=== PATIENT | female | born 1955 | race Caucasian/White ===

== ENCOUNTER 2018-05-12 14:29 | Emergency (ER) | payer MEDICARE ==
--- NOTE | 2018-05-12 15:36 | CT ---
CT LUMBAR SPINE NONCONTRAST: History: Fall. Back injury. FINDINGS: There is very mild compression of the T12 superior endplate. Retropulsion is approximately 0.4 cm wit h minimal effacement of the ventral aspect of the thecal sac. Other vertebral body heights and alignment are maintained. Posterior operative fixation at the L4-5 l evel. L3-4: Posterior disc bulge and circumferential degenerative changes result in moderate stenosis of th e central canal. IMPRESSION: 1. Mild T12 superior endplate compression, acute, with very mild retropulsion. 2. Degenerative and post-operative changes lower lumbar spine. Findings were called to Jyoti Mendoza in the Emergency Department at 1508 hours.
[2018-05-12] MEDS ORDERED: HYDROcodone/Acetaminophen 5/325 mg Tablet ONE (15:42)
== END 2018-05-12 17:25 | disposition home or self-care (01) ==
LOC: ERS 14:29
DX: S22.089A Unspecified fracture of T11-T12 vertebra, initial encounter for closed fracture (principal); F31.9 Bipolar disorder, unspecified; E11.9 Type 2 diabetes mellitus without complications; E78.5 Hyperlipidemia, unspecified; F17.210 Nicotine dependence, cigarettes, uncomplicated; Z79.4 Long term (current) use of insulin; W19.XXXA Unspecified fall, initial encounter
CPT/HCPCS: 72131; L0639

== ENCOUNTER 2018-05-24 11:27 | Outpatient (CLI) | payer MEDICARE | END 2018-05-24 11:28 | disposition home or self-care (01) | LOC: BICMAMMO 11:27 | PROVIDERS: ATTEND Family Medicine | DX: Z12.31 Encounter for screening mammogram for malignant neoplasm of breast (principal); R92.1 Mammographic calcification found on diagnostic imaging of breast | CPT/HCPCS: 77063; 77067 ==

== ENCOUNTER 2018-06-21 14:13 | Outpatient (CLI) | payer MEDICARE ==
--- NOTE | 2018-06-21 16:35 | RAD ---
2 VIEWS LUMBAR SPINE: Date: 06/21/18 HISTORY: Low back pain. Fall. COMPARISON: None. FINDINGS: There are five lumbar-type vertebral bodies. Lumbar spine vertebral body height is maintained. There is no fracture. Uncomplicated lumbar fusion hardware at L4 and L5. No perihardware lucency. There is disc prosthesis at L4-L5. There is mild to moderate chronic compression fracture at T12. Mild loss of vertebral body height. Re tropulsion is noted. When compared to the CT from 05/12/18. There has been progression in terms of th e loss of vertebral body height. IMPRESSION: Worsening loss of vertebral body height at T12. POS: [facility]
--- NOTE | 2018-06-21 16:40 | RAD ---
THORACIC SPINE THREE VIEWS: HISTORY: Back pain. FINDINGS: There are 12 thoracic type vertebrae. The pedicles are intact. Moderate rightward convex curvature of the mid thoracic spine. Compression of the L2 superior endplate with minimal retropulsion. Loss of height by approximately 20%. Osteophytosis throughout the remainder of the facets and vertebral b odies. IMPRESSION: T12 superior endplate compression fracture, approximately 20%, age indeterminate. Appearance suggest s that this could be an acute injury. POS: [facility]
== END 2018-06-21 14:14 | disposition home or self-care (01) ==
LOC: TBSIIMAG 14:13
PROVIDERS: ATTEND Surgery
DX: M54.5 Low back pain (principal); M48.54XA Collapsed vertebra, not elsewhere classified, thoracic region, initial encounter for fracture; M53.84 Other specified dorsopathies, thoracic region
CPT/HCPCS: 72072; 72100

== ENCOUNTER 2018-09-15 13:07 | Outpatient (CLI) | payer MEDICARE ==
--- NOTE | 2018-09-15 13:56 | RAD ---
THORACIC SPINE RADIOGRAPH SERIES THREE VIEWS: Indication: Back pain. FINDINGS: There is thoracic kyphosis. Osseous demineralization. There is multilevel degenerative change without compression fracture or subluxation. Multiple metallic jeaneth overlie the chest. IMPRESSION: 1. No compression fracture or subluxation of the thoracic spine. 2. Thoracic kyphosis. POS: [facility]
--- NOTE | 2018-09-15 14:04 | RAD ---
2-3 VIEW LUMBAR SPINE SERIES: Indication: Low back pain. FINDINGS: Stable hardware alignment of the lower lumbar spine is present. There is re-demonstration of a mild a nterior wedge compression fracture of T12. Exam is grossly stable. IMPRESSION: Stable lumbar spine. POS: [facility]
== END 2018-09-15 13:08 | disposition home or self-care (01) ==
LOC: TBSIIMAG 13:07
PROVIDERS: ATTEND Surgery
DX: M54.5 Low back pain (principal); M40.204 Unspecified kyphosis, thoracic region
CPT/HCPCS: 72070; 72100

== ENCOUNTER 2018-10-06 07:33 | Day surgery (SDC) | payer MEDICARE ==
[2018-09-29 14:17] VITALS: BMI 33.8
--- NOTE | 2018-10-06 03:52 | HP ---
HISTORY OF PRESENT ILLNESS: This is a 63-year-old female, who comes in for colonoscopy for colon cancer screening. The patient with history of recurrent intermittent diarrhea. No history of fever. No abdominal pain. No weight loss. ALLERGIES: SULFA, PENICILLIN, TEGRETOL, MORPHINE CONTENT. SOCIAL HISTORY: The patient is a smoker. She still smokes E-cigarettes. Drinks alcohol occasionally. PAST MEDICAL HISTORY: 1. Diabetes. 2. Hypertension. 3. Hypothyroidism. 4. Hyperlipidemia. 5. Bipolar disorder. 6. Anxiety, depression. PHYSICAL EXAMINATION: VITAL SIGNS: Pulse is 70, blood pressure 130/76. HEENT: Conjunctivae clear. CARDIOVASCULAR SYSTEM: First and second heart sounds heard. LUNGS: Clear to auscultation. ABDOMEN: Soft. No organomegaly. No tenderness. No masses. ADMITTING DIAGNOSIS: A 63-year-old female undergoing colonoscopy for colon cancer screening. Job ID: [id number]
[2018-10-06] MEDS ORDERED: PROPOFOL 200 MG/20 ML VIAL ONE (10:56)
--- NOTE | 2018-10-06 14:46 | OP ---
DATE OF PROCEDURE: 10/06/2018 PROCEDURE PERFORMED: Colonoscopy. PREOPERATIVE DIAGNOSIS: A 63-year-old female undergoing colonoscopy for colon cancer. POSTOPERATIVE DIAGNOSES: Hemorrhoids. Otherwise, normal exam. The patient had redundant, tortuous colon and the exam of this was difficult. DESCRIPTION OF PROCEDURE: The patient was placed on her left lateral position and was given sedation by Anesthesia Department. A rectal exam was done before the scope was advanced into the rectum. No lesions felt on rectal exam. A Pentax video colonoscope was introduced into rectum, advanced all the way to the cecum. Exam was difficult because the colon the patient had was very redundant tortuous colon. Although, abdominal compression was used to advance the scope, the scope kept looping up in the colon. The scope was withdrawn back already in the rectum and advanced back several times. Subsequently, the patient was turned back. With the change in position, the scope could be advanced into the cecum without much difficulty. The mucosa appears normal throughout the colon with normal vascular pattern. In the appendiceal orifice, ileocecal valve, cecum, no pathology seen. Withdrawal of scope from the cecum to ascending colon, hepatic flexure, no pathology seen. The transverse colon, splenic flexure, descending colon, sigmoid colon, no pathology seen. Rectal hemorrhoids. DISCHARGE PLAN: This is a 63-year-old female came for colonoscopy for colon cancer screening. She underwent colonoscopy and had no pathology. DISCHARGE RECOMMENDATIONS: 1. The patient was advised to call me if she develops abdominal pain, hematochezia. 2. In the absence of any other symptoms, she will come back to me in 2 weeks. RECOMMENDATIONS: Repeat colonoscopy in 10 years. Job ID: [id number] [facility]
== END 2018-10-06 12:00 | disposition home or self-care (01) ==
LOC: SDC 07:33
PROVIDERS: ATTEND Internal Medicine Gastroenterology
PROC: 0DJD8ZZ Inspection of Lower Intestinal Tract, Via Natural or Artificial Opening Endoscopic (ICD-10-PCS; principal; 2018-10-06)
DX: Z12.11 Encounter for screening for malignant neoplasm of colon (principal); K63.89 Other specified diseases of intestine; K64.9 Unspecified hemorrhoids; E11.9 Type 2 diabetes mellitus without complications; I10 Essential (primary) hypertension; E03.9 Hypothyroidism, unspecified; E78.5 Hyperlipidemia, unspecified; F31.9 Bipolar disorder, unspecified; F41.9 Anxiety disorder, unspecified; F17.290 Nicotine dependence, other tobacco product, uncomplicated; Z88.0 Allergy status to penicillin; Z88.2 Allergy status to sulfonamides; Z88.5 Allergy status to narcotic agent; Z88.8 Allergy status to other drugs, medicaments and biological substances; Z79.4 Long term (current) use of insulin; Z79.82 Long term (current) use of aspirin; Z79.899 Other long term (current) drug therapy
CPT/HCPCS: 36416

== ENCOUNTER 2018-12-02 14:22 | Outpatient (CLI) | payer MEDICARE ==
--- NOTE | 2018-12-02 14:54 | ULT ---
[facility] lower extremity venous duplex exam: HISTORY: Left leg edema times one week. FINDINGS: Real-time color Doppler evaluation of the left lower extremity was performed from the groin to calf. This includes evaluation of the common femoral, superficial and profunda femoral, saphenous , popliteal and posterior tibial veins. This reveals a deep venous system which is patent. There is normal compressibility and augmentation. IMPRESSION: No evidence of DVT of the left lower extremity.
== END 2018-12-02 14:23 | disposition home or self-care (01) ==
LOC: BICULT 14:22
PROVIDERS: ATTEND Student in an Organized Health Care Education/Training Program
DX: R60.0 Localized edema (principal); R06.00 Dyspnea, unspecified

== ENCOUNTER 2019-03-21 13:38 | Outpatient (CLI) | payer MEDICARE ==
--- NOTE | 2019-03-21 15:45 | BD ---
DEXA BONE MINERAL DENSITY STUDY: HISTORY: Osteoporosis screening. Fall. Postmenopausal female. COMPARISON: DEXA exam from 2016. FINDINGS: BMD (g/cm2) RIGHT HIP: Right femoral neck: 0.667 T-Score: -1.6 -0.1 Total right hip: 0.933 T-Score: -0.1 1.2 Left femoral neck: 0.723 T-Score: -1.0 0.5 Total left hip: 0.983 T-Score: 0.3 1.6 WHO classification osteopenia. Impression: Osteopenia with elevated fracture risk. POS: [facility]
== END 2019-03-21 13:39 | disposition home or self-care (01) ==
LOC: BICMAMMO 13:38
PROVIDERS: ATTEND Student in an Organized Health Care Education/Training Program
DX: Z13.820 Encounter for screening for osteoporosis (principal); S22.080A Wedge compression fracture of T11-T12 vertebra, initial encounter for closed fracture; M85.851 Other specified disorders of bone density and structure, right thigh; M85.852 Other specified disorders of bone density and structure, left thigh; Z91.81 History of falling
CPT/HCPCS: 77080

== ENCOUNTER 2019-05-25 13:34 | Outpatient (CLI) | payer MEDICARE ==
--- NOTE | 2019-05-25 14:00 | MMO ---
Bilateral MAMMO Bilat Screen [facility]. CLINICAL HISTORY: Patient is 63 years old and is seen for screening. The patient has no family history of breast cancer. The patient has no personal history of cancer. VIEWS: The views performed were: bilateral craniocaudal with tomosynthesis and bilateral mediolateral oblique with tomosynthesis. FILMS COMPARED: The present examination has been compared to prior imaging studies performed at [facility] on 04/27/2015, 05/06/2016, 05/21/2017 and 05/24/2018. This study has been interpreted with the assistance of computer-aided detection. MAMMOGRAM FINDINGS: There are scattered fibroglandular densities. There are stable benign appearing calcifications seen in both breasts. There are no suspicious masses, suspicious calcifications, or new areas of architectural distortion. IMPRESSION: THERE IS NO MAMMOGRAPHIC EVIDENCE OF MALIGNANCY. A ROUTINE FOLLOW-UP MAMMOGRAM IN 1 YEAR IS RECOMMENDED. THE RESULTS OF THIS EXAM WERE SENT TO THE PATIENT. ACR BI-RADS Category 2 - Benign finding MAMMOGRAPHY NOTE: 1. A negative mammogram report should not delay a biopsy if a dominant of clinically suspicious mass is present. 2. Approximately 10% to 15% of breast cancers are not detected by mammography. 3. Adenosis and dense breasts may obscure an underlying neoplasm. Reported by: JESSICA COBB MD Electonically Signed: [id number]
== END 2019-05-25 13:35 | disposition home or self-care (01) ==
LOC: BICMAMMO 13:34
PROVIDERS: ATTEND Student in an Organized Health Care Education/Training Program
DX: Z12.31 Encounter for screening mammogram for malignant neoplasm of breast (principal)
CPT/HCPCS: 77063; 77067

== ENCOUNTER 2019-06-06 11:51 | Observation (INO) | payer MEDICARE ==
[2019-06-06 12:40] LABS: #Eosinphils 0.1 thou/uL (0.0-0.7); #Lymphocytes 3.1 thou/uL (1.20-3.40); #Monocytes 1.3 thou/uL (0.11-0.59); #Neutrophils 6.5 thou/uL (1.40-6.50); %Basophils 0.1 % (0.0-1.0); %Eosinophils 0.6 % (0.0-10.0); %Lymphocytes 28.3 % (21.0-51.0); %Monocytes 12.2 % (0.0-10.0); %Neutrophils 58.9 % (42.0-75.0); Hemoglobin 11.1 g/dL (12.0-16.0); Mean Corpuscular HGB CONC 32.8 g/dL (32.0-36.0); Mean Corpuscular Volume 91.4 fL (78.0-98.0); Mean Platelet Volume 8.2 fL (7.4-10.4); Platelet Count 232 thou/uL (130-400); RBC Distribution Width 12.1 % (11.5-14.5)
[2019-06-06] MEDS ORDERED: Sodium Chloride 77 MEQ, Potassium Chloride 20 MEQ in Dextrose 10% in Water 1,000 ML IV SCH (12:45)
[2019-06-06 12:50] LABS: Bilirubin Negative (Negative); Blood, Urine Negative (Negative); Clarity Clear (Clear); Glucose, Urine (Dipstick) Normal (Negative); Leukocyte Negative Leu/uL (Negative); Nitrite Negative (Negative); Protein, Urine (Dipstick) Negative (Neg-Trace); Urobilinogen Normal mg/dL (Less than 2)
[2019-06-06 12:58] LABS: Amphetamine Not Detected (NotDetected); Barbiturates Screen Detected (NotDetected); Benzodiazepine Screen Not Detected (NotDetected); Cocaine Metabolite Screen Not Detected (NotDetected); Medtox Control Line Valid? VALID (VALID); Medtox Reader # READER 1; Methadone Not Detected (NotDetected); Methamphetamine Not Detected (NotDetected); Opiate Screen Detected (NotDetected); Oxycodone Screen Not Detected (NotDetected); Phencyclidine (PCP) Not Detected (NotDetected); THC/Cannabinoid Screen Not Detected (NotDetected); Tricyclic Screen Not Detected (NotDetected)
[2019-06-06 13:05] LABS: ALT (SGPT) 41 U/L (8-55); AST (SGOT) 31 U/L (5-34); Alkaline Phosphatase 38 U/L (40-110); Anion Gap 17 mmol/L (10-20); BUN (Urea Nitrogen) 8 mg/dL (9.8-20.1); Bilirubin, Total 0.2 mg/dL (0.2-1.2); Calc. Creatinine Clearance 0 mL/min (70-130); Calcium 9.4 mg/dL (7.8-10.44); Carbon Dioxide 22 mmol/L (23-31); Chloride 105 mmol/L (98-107); Estimated GFR-MDRD 75; Globulin 3.2 g/dL (2.4-3.5); Glucose 158 mg/dL (80-115); Potassium 3.8 mmol/L (3.5-5.1); Protein, Total 7.2 g/dL (6.0-8.3); Sodium 140 mmol/L (136-145)
[2019-06-06 13:11] LABS: Acetaminophen Less than 6.0 mcg/mL (10.0-30.0); Alcohol Less than 10 mg/dL (Less than 10); CK (CPK) 87 U/L (29-168); Lipase 27 U/L (8-78); Salicylate Less than 8.0 mg/dL (15.0-30.0)
--- NOTE | 2019-06-06 13:37 | RAD ---
PORTABLE CHEST: Date: 06/06/19 HISTORY: Mental status change. FINDINGS: Lungs appear clear of infiltrate. Heart size upper normal. Vasculature within normal range. IMPRESSION: No acute process. POS: [facility]
--- NOTE | 2019-06-06 14:18 | PDOC.FPRHP ---
- History of Present Illness Chief Complaint: Possible Suicide Attemp/Insulin Overdose History of Present Illness: Pt is a 63 yo with PMH significant for Bipolar, Depression, HLD, HTN, Hypothyroid, PTSD, osteoporosis who presents for possible suicide attempt via insulin overdose. Pt is a poor historian and is unable to recall most events from today. She reportedly has history of poor finances. She recalls becoming upset after checking her credit card online. ED reports she called 911 stating she took 90 U of glargine, her home dose is 50 U daily. She does not recall this or the trip to the ED. One month ago she was seen by Dr. Magana in the outpt setting and at this time pt had taken out a new credit card. Dr. Magana notes pt is non-compliant. ED Course: In the ED pt was found to be hyperglycemic. She did not have any signs of hypoglycemia, no change in mentation. She was started on D10 to prophylactically treat for hypoglycemia. Q1h accuchecks were elevated. She was AAO x 2 but had poor recall. UA negative, mildly anemic, and found to be positive for opiates, barbiturates. ED noted history of bipolar. - Allergies/Adverse Reactions Allergies Allergy/AdvReac Type Severity Reaction Status Date / Time carbamazepine [From Tegretol] Allergy Verified 09/29/18 14:18 morphine sulfate Allergy Verified 09/29/18 14:18 [From MS Contin] Penicillins Allergy Verified 09/29/18 14:18 Sulfa (Sulfonamide Allergy Verified 09/29/18 14:18 Antibiotics) - Home Medications Medication Instructions Recorded Confirmed Type Aspirin Chewable [Aspirin Chewable 81 mg PO HS 06/23/14 06/06/19 History Tablet] Divalproex Sodium [Depakote ER] 1,000 mg PO HS 06/23/14 06/06/19 History Levothyroxine Sodium 88 mcg PO HS 06/23/14 06/06/19 History Lisinopril 20 mg PO HS 06/23/14 06/06/19 History Multivit With Calcium,Iron,Min 1 tablet PO HS 06/23/14 06/06/19 History [Women's Daily Multivitamin] Sertraline HCl [Zoloft] 100 mg PO HS 06/23/14 06/06/19 History metFORMIN HCl 1,000 mg PO BID 06/23/14 06/06/19 History Atorvastatin Calcium [Lipitor] 40 mg PO HS 09/29/18 06/06/19 History Insulin Glargine,Hum.Rec.Anlog 30 units SQ HS 09/29/18 06/06/19 History [Lantus] Primidone [Mysoline] 100 mg PO HS 09/29/18 06/06/19 History Venlafaxine HCl [Effexor] 75 mg PO HS 09/29/18 06/06/19 History glipiZIDE [Glucotrol XL] 2.5 mg PO HS 09/29/18 06/06/19 History - History PMHx: Osteoporosis, HTN, HLD, Bipolar, Depression, Hypothyroid, Poor Dentition, Anemia, DM II requiring Insulin Therapy, PTSD PSHx: Multiple skin grafts for leonard, T&A, BLT, Spinal Stenosis Surgery FHx: non-contributory Social: Current smoker - cigars, drinks 1 bottle of wine a month, denies drug use, lives alone with ex- next door - Review of Systems ROS unobtainable: other (Difficult to obtain due to mentation) General: reports: fever/chills, weight/appetite/sleep changes ENT: reports: nasal congestion, rhinorrhea Respiratory: reports: cough, shortness of breath Cardiovascular: reports: chest pain, palpitation Gastrointestinal: reports: nausea, vomiting Genitourinary: reports: incontinence - Vital signs BP: [164/81] HR: [83] RR: [20] Tmax: [99.5] Pox: [97]% on [RA] Wt: [86.18 kg] - Physical Exam Constitutional: NAD, awake, alert and oriented -Constitutional: AAO x 2; difficult with recall, short term memory HEENT: PERRLA, EOMI Neck: FROM, trachea midline Heart: RRR, normal S1/S2, pulses present, no edema Lungs: CTAB, no respiratory distress, no wheezing Abdomen: soft, non-tender, bowel sounds present Neurological: no focal deficit, CN II-XII intact Skin: no rash/lesions, capillary refill <2 seconds Heme/Lymphatic: no purpura, no petechia FMR H&P: Results - Labs Result Diagrams: 06/06/19 12:12 06/06/19 12:12 Lab results: WBC 11.0 thou/uL (4.8-10.8) H 06/06/19 12:12 Hgb 11.1 g/dL (12.0-16.0) L 06/06/19 12:12 Hct 33.8 % (36.0-47.0) L 06/06/19 12:12 MCV 91.4 fL (78.0-98.0) 06/06/19 12:12 Plt Count 232 thou/uL (130-400) 06/06/19 12:12 Neutrophils % 58.9 % (42.0-75.0) 06/06/19 12:12 Sodium 140 mmol/L (136-145) 06/06/19 12:12 Potassium 3.8 mmol/L (3.5-5.1) 06/06/19 12:12 Chloride 105 mmol/L (98-107) 06/06/19 12:12 Carbon Dioxide 22 mmol/L (23-31) L 06/06/19 12:12 BUN 8 mg/dL (9.8-20.1) L 06/06/19 12:12 Creatinine 0.77 mg/dL (0.6-1.1) 06/06/19 12:12 Glucose 158 mg/dL (80-115) H 06/06/19 12:12 Calcium 9.4 mg/dL (7.8-10.44) 06/06/19 12:12 Total Bilirubin 0.2 mg/dL (0.2-1.2) 06/06/19 12:12 AST 31 U/L (5-34) 06/06/19 12:12 ALT 41 U/L (8-55) 06/06/19 12:12 Alkaline Phosphatase 38 U/L (40-110) L 06/06/19 12:12 Creatine Kinase 87 U/L (29-168) 06/06/19 12:12 B-Natriuretic Peptide 56.3 pg/mL (0-100) 06/06/19 12:12 Serum Total Protein 7.2 g/dL (6.0-8.3) 06/06/19 12:12 Albumin 4.0 g/dL (3.4-4.8) 06/06/19 12:12 Lipase 27 U/L (8-78) 06/06/19 12:12 Urine Ketones Negative mg/dL (Negative) 06/06/19 12:31 Urine Blood Negative (Negative) 06/06/19 12:31 Urine Nitrite Negative (Negative) 06/06/19 12:31 Ur Leukocyte Esterase Negative Alok/uL (Negative) 06/06/19 12:31 FMR H&P: A/P - Problem List (1) Diabetes mellitus, type II Current Visit: Yes Status: Acute (2) History of bipolar disorder Current Visit: Yes Status: Acute Code(s): Z86.59 - PERSONAL HISTORY OF OTHER MENTAL AND BEHAVIORAL DISORDERS (3) History of depressed bipolar disorder Current Visit: Yes Status: Acute Code(s): F31.70 - BIPOLAR DISORD, CURRENTLY IN REMIS, MOST RECENT EPISODE UNSP (4) Suicidal overdose Current Visit: Yes Status: Acute Code(s): T50.902A - POISONING BY UNSP DRUG/ MEDS/BIOL SUBST, SELF-HARM, INIT (5) Hyperlipemia Current Visit: No Status: Acute Code(s): E78.5 - HYPERLIPIDEMIA, UNSPECIFIED (6) Hypertension Current Visit: No Status: Acute Code(s): I10 - ESSENTIAL (PRIMARY) HYPERTENSION (7) Hypothyroidism Current Visit: No Status: Acute Code(s): E03.9 - HYPOTHYROIDISM, UNSPECIFIED - Plan Pt is a 63 yo female who presents with non-confirmed history of insulin overdose , suicide attempt who is currently being monitored for hypoglycemia, all BG checks have been > normal limits. Suspect bipolar disorder affecting pt's current disposition. # Insulin Overdose - currently pt has no definitive signs of insulin overdose - mentation AAO x 2 with lapse in recall, short term memory, BG have remained elevated. Will monitor with q2h accuchecks - hypoglycemia protocol initiated - Discuss pt with PCP, Dr. Magana, to determine baseline mentation, short term memory # Suicide Attempt - will further assess once we can establish pt's baseline - pt will need sitter # Bipolar - depakote level pending - continue depakote, will discontinue home effexor, zoloft at this time - Case Management consult - [facility] - pt sees [facility], states she went 2 weeks ago, will need follow up as outpt # Depression - d/c home meds # Hypothyroid - continue home meds # Hypertension - BP elevated on admission, monitor at this time, continue home medications # HLD - continue home meds # Osteoporosis - continue home meds, pt takes bisphosph on mondays # Poor dentition - follow up outpt # Fluid Retention - held Lasix Diet: Carb Consistent, Accuchecks Fluids: None VTE Prophylaxis: Lovenox Full Code: DNI Dispo: pt is currently being monitored for hypoglycemia secondary to insulin overdose, likely will need < 48 hour stay. Will need to further psych eval to dictate dispo home. FMR H&P: Upper Level - Plan Date/Time: 06/06/19 1418 PCP: Luis Magana HPI: This is a 63 yo F who comes in after suicide attempt. She took 90 units of lantus after going to the [employer] and finding out money was taken from the wrong account and this made her angry. She states she is not currently suicidal, she called 911 just after taking the insulin. She denies tremors, weakness, and palpitations at this time. PHYSICAL EXAMINATION: General: NAD, alert and oriented x3 HEENT: PERRLA, EOMI, normal sclera, oropharynx without erythema or exudate Neck: Supple. Full ROM. Heart/Cardiovascular System: RRR, Cap refill < 3 seconds, no rub, no murmur Lungs/Respiratory System: clear to auscultation bilaterally. No increased work of breathing. Room air. Abdomen/Gastro-Intestinal System: no abdominal tenderness, normal bowel sounds, no masses, no organomegaly Extremities: Warm extremities. No cyanosis or edema. Neuro: No gross deficits appreciated. CN 2-12 grossly intact Psychiatry: Awake, Alert and cooperative with exam Skin: No lesions, rashes, or ulcers Musculoskeletal: Full ROM A/P: # Insulin overdose - s/p d10 in ED - accucheck 150, 150, 250 - will d/c d10 and monitor accuchecks q2 hrs with dextrose PRN - took 90 U lantus arond 10am, poor historian, usual dose is 30U # Suicide attempt - Hx of multiple suicide attempts, Bipolar, PTSD - States she would kill someone from bank in [place] if she could - Will consult [facility] when medically cleared - UDS shows opitates, barbiturates - check depakote level # Hypothyroidism - TSH 4.6 - Will restart home meds Fluids: TKO Code status: DNI PPx: SCD Dispo: [facility] consult, glucose Addendum - Attending - Attending Attestation Date/Time: 06/06/19 3714 I personally evaluated the patient and discussed the management with Dr. Vaz I agree with the History, Examination, Assessment and Plan documented above with any addition or exceptions noted below - 63 yo female with h/o bipolar d/o , DM, hypothyroidism, HTN. and HLD presented after intentional overdose of her insulin. Patient states that she had gotten some upsetting news regarding some financial issues and then took 90 units of her glargine (usual dose is 30 units) . She then called the police and EMS responded and she was brought to ER. No hypoglycemia in ambulance or ER and patient started on D10 in ER and given meal. Lowest BG in ER 145; highest 248. PMH/PSH/Meds/SH reviewed and agree with resident's documentation. Afebrile VSS Exam repeated by me and agree with resident's documentation. Labs: WBC=11.0, H/H=11.1/33.8, Ztg=143, Ac=089, K=3.8 , An=395, CO2=22, BUN/Cr=8/0.77, Htrs=644, valproic acid=14.4. A/P: 1) Insulin OD- no hypoglycemia; continue to monitor accuchecks q2 hours; if stable for next 3 readings then can change to q4 hours. Plan for [facility] once medically stable. 2) Hypothyroidism- continue home meds. 3) Bipolar- continue home meds.
[2019-06-06] MEDS ORDERED: Dextrose 50% Abboject 50 ML SYRINGE SLOW IVP PRN (15:10)
[2019-06-06] MEDS ORDERED: Dextrose 5% in Water 1,000 ML IV PRN (15:10)
[2019-06-06 16:55] VITALS: BMI 34.9
[2019-06-06] MEDS ORDERED: Ondansetron ODT 4 MG TAB PO PRN (19:08)
[2019-06-06] MEDS ORDERED: Nicotine 14 MG PATCH TD SCH (20:00)
[2019-06-06] MEDS ORDERED: Primidone 50 MG TAB PO SCH (21:00)
[2019-06-06] MEDS ORDERED: Atorvastatin Calcium 40 MG TAB PO SCH (21:00)
[2019-06-06] MEDS ORDERED: Aspirin Chewable 81 MG TAB PO SCH (21:00)
[2019-06-06] MEDS: Insulin Regular 300 UNITS/3 ML VIAL SC PRN ×2 (21:06→23:27)
[2019-06-07 04:54] LABS: ALT (SGPT) 45 U/L (8-55); AST (SGOT) 45 U/L (5-34); Albumin 3.5 g/dL (3.4-4.8); Alkaline Phosphatase 39 U/L (40-110); Anion Gap 12 mmol/L (10-20); BUN (Urea Nitrogen) 12 mg/dL (9.8-20.1); Bilirubin, Total 0.2 mg/dL (0.2-1.2); Calc. Creatinine Clearance 105 mL/min (70-130); Calcium 8.9 mg/dL (7.8-10.44); Carbon Dioxide 24 mmol/L (23-31); Chloride 107 mmol/L (98-107); Estimated GFR-MDRD 80; Glucose 118 mg/dL (80-115); Potassium 4.4 mmol/L (3.5-5.1); Protein, Total 6.5 g/dL (6.0-8.3); Sodium 139 mmol/L (136-145)
[2019-06-07] MEDS ORDERED: Levothyroxine Sodium 100 MCG TAB PO SCH (06:00)
--- NOTE | 2019-06-07 07:47 | PDOC.FM ---
- Subjective Subjective: This AM patient states she feels great. Still frustrated about bank situation but denies SI/HI this AM. Denies pain, tremors, N/V/D. No other complaints this AM. Much improved demeanor from yesterday. - Objective Vital Signs & Weight: Vital Signs (12 hours) Temp Pulse Resp BP Pulse Ox 06/07/19 05:11 98.5 F 88 20 106/59 L 99 06/07/19 00:00 99.7 F H 82 20 102/53 L 06/06/19 21:30 99.5 F 06/06/19 20:00 100 F H 85 20 125/56 L 95 Weight Weight 86.636 kg I&O: 06/06/19 06/07/19 06/08/19 06:59 06:59 06:59 Intake Total 410 Balance 410 Result Diagrams: 06/06/19 12:12 06/07/19 04:05 Phys Exam - Physical Examination Constitutional: NAD HEENT: PERRLA, moist MMs Neck: no nodes, full ROM Respiratory: no wheezing, no rales, clear to auscultation bilateral Cardiovascular: RRR, no significant murmur Gastrointestinal: soft, non-tender, no distention, positive bowel sounds Musculoskeletal: no edema, pulses present Neurological: moves all 4 limbs Psychiatric: normal affect, A&O x 3 Dx/Plan (1) Diabetes mellitus, type II Status: Acute (2) History of bipolar disorder Code(s): Z86.59 - PERSONAL HISTORY OF OTHER MENTAL AND BEHAVIORAL DISORDERS Status: Acute (3) History of depressed bipolar disorder Code(s): F31.70 - BIPOLAR DISORD, CURRENTLY IN REMIS, MOST RECENT EPISODE UNSP Status: Acute (4) Suicidal overdose Code(s): T50.902A - POISONING BY UNSP DRUG/MEDS/BIOL SUBST, SELF-HARM, INIT Status: Acute (5) Hyperlipemia Code(s): E78.5 - HYPERLIPIDEMIA, UNSPECIFIED Status: Acute (6) Hypertension Code(s): I10 - ESSENTIAL (PRIMARY) HYPERTENSION Status: Acute (7) Hypothyroidism Code(s): E03.9 - HYPOTHYROIDISM, UNSPECIFIED Status: Acute - Plan Plan: # Insulin overdose- DMII - s/p d10 in ED - glucose stable overnight and this AM, tolerated PO without difficulty - Sliding scale overnight # Suicide attempt- PTSD, Biplar, depression - Hx of multiple suicide attempts, Bipolar, PTSD - Medically cleared, awaiting [facility] eval - denies SI/HI at this time - depakote level low, possible non-compliance # Hypothyroidism - TSH 4.6 - home meds, possible non-compliance Fluids: TKO Code status: DNI PPx: SCD Dispo: likely d/c today pending [facility] eval
[2019-06-07] MEDS ORDERED: Calcium Carbonate + Vit D 1 TAB PO SCH (08:00)
[2019-06-07] MEDS ORDERED: Lisinopril 10 MG TAB PO SCH (09:00)
[2019-06-07] MEDS ORDERED: Enoxaparin Sodium 40 MG/0.4 ML SYRINGE SC SCH (09:00)
[2019-06-07] MEDS: Insulin Regular 300 UNITS/3 ML VIAL SC PRN ×2 (09:05→12:20)
[2019-06-07 15:47] VITALS: BP 133/69; TEMP 98.5
[2019-06-07] MEDS ORDERED: FLU VACC TS2019-20(65YR UP)/PF 180 MCG/0.5 ML SYRINGE IM ONE (17:15)
--- NOTE | 2019-06-07 17:22 | EKG ---
Test Reason : Blood Pressure : / mmHG Vent. Rate : 079 BPM Atrial Rate : 079 BPM P-R Int : 158 ms QRS Dur : 100 ms QT Int : 382 ms P-R-T Axes : 045 -10 044 degrees QTc Int : 438 ms Normal sinus rhythm Moderate voltage criteria for LVH, may be normal variant ST abnormality, possible digitalis effect Abnormal ECG Confirmed by BAKARI OLVERA, JOSUE ([id number]), editor in chief newspaper AVINASH MCKEON ([id number]) on 06/07/2019 5:22:30 PM Referred By: Confirmed By:JOSUE VILLEGAS MD
[2019-06-07] MEDS ORDERED: Multivit, Therapeutic 1 TAB PO SCH (21:00)
--- NOTE | 2019-06-08 05:06 | DIS ---
DATE OF ADMISSION: 06/06/2019 DATE OF DISCHARGE: 06/07/2019 CONSULTS: [facility]. PROCEDURES: None. PRIMARY DIAGNOSIS: Insulin overdose. SECONDARY DIAGNOSES: 1. Bipolar. 2. Post-traumatic stress disorder. 3. Depression. 4. Suicide attempt. 5. Hypothyroidism. 6. Hyperlipidemia. 7. Hypertension. DISCHARGE MEDICATIONS: There was no changes from the patient's home medications. There is a discrepancy between what the patient says she is taking as far as insulin and what is recorded in her chart from [facility]. [facility] note she should be on 50 units of Lantus daily. The patient is adamant that she takes only 30 units daily. 1. Multivitamin. 2. Aspirin 81 mg daily. 3. Levothyroxine 88 mcg. 4. Lisinopril. 5. Metformin 1 g b.i.d. 6. Sertraline 100 mg daily. 7. Depakote 1 g at bedtime. 8. Glipizide 2.5 mg at bedtime. 9. Primidone 100 mg at bedtime. 10. Venlafaxine 75 mg oral at bedtime. 11. Atorvastatin 40 at bedtime. 12. Insulin 30 units at bedtime. DISCONTINUED MEDICATIONS: None. HISTORY OF PRESENT ILLNESS/HOSPITAL COURSE: This is a 63-year-old female, who came in after taking 90 units of Lantus at home in an attempt to kill herself. She states that she went to the bank and found that some money was missing and this made her extremely angry. She stated that she would have harmed or killed some of the bank workers if she was near to them. She states that the bank was in [place] and so she could not reach them. So she decided to take 90 units of insulin in order to try to kill herself. The patient called 911 immediately after taking the insulin. Upon arrival to the ER, her glucose was 150. She was started on D10 and her glucoses trended up all way to 480. The patient was managed with sliding scale throughout the course of the night. The patient was asymptomatic throughout the course of the night. Denied weakness, palpitations, tremors, and her lab values were all within normal limits in the morning. [facility] came and evaluated the patient in the morning and stated that she was fit for admission to [facility] secondary to her persistent homicidal ideation and unstable nature. In the morning, the patient had denied suicidal ideation, but she still stated that she felt she could be a harm to someone if something happened that stressed her out. Therefore, the patient was transferred to [facility] for continued psychiatric care. DISPOSITION: Stable. DISCHARGE INSTRUCTIONS: 1. Location: [facility]. 2. Diet: Diabetic. 3. Activity: As tolerated. 4. Followup: With Dr. Shahrzad Magana 3 to 4 days after discharge from [facility]. Job ID: [id number]
== END 2019-06-07 16:02 | disposition short-term general hospital (02) ==
LOC: ERS 11:51 → ERHOLD 14:05 → T4-B 16:36
PROVIDERS: ADMIT Family Medicine; ATTEND Family Medicine
DX: T38.3X2A Poisoning by insulin and oral hypoglycemic [antidiabetic] drugs, intentional self-harm, initial encounter (principal); E11.65 Type 2 diabetes mellitus with hyperglycemia; I10 Essential (primary) hypertension; E03.9 Hypothyroidism, unspecified; E78.5 Hyperlipidemia, unspecified; F42.9 Obsessive-compulsive disorder, unspecified; F32.9 Major depressive disorder, single episode, unspecified; F43.10 Post-traumatic stress disorder, unspecified; F17.290 Nicotine dependence, other tobacco product, uncomplicated; M81.0 Age-related osteoporosis without current pathological fracture; Z79.82 Long term (current) use of aspirin; Z79.4 Long term (current) use of insulin; Z79.899 Other long term (current) drug therapy; Z88.5 Allergy status to narcotic agent; Z88.8 Allergy status to other drugs, medicaments and biological substances; Z88.0 Allergy status to penicillin; Z88.2 Allergy status to sulfonamides
CPT/HCPCS: 71045; 80053; 80164; 80306; 80307; 81003; 82550; 82962 ×2; 83690; 83880; 84484; 90662; 93005; 96360; 96361; 96372; 99285; G0008; G0378 ×3; 36415; 36416; 84443; 85025; 90471; J1650

== ENCOUNTER 2020-05-28 13:43 | Outpatient (CLI) | payer MEDICARE ==
--- NOTE | 2020-05-28 14:30 | MMO ---
Bilateral MAMMO Bilat Screen [facility]. CLINICAL HISTORY: Patient is 64 years old and is seen for screening. The patient has no family history of breast cancer. The patient has no personal history of cancer. VIEWS: The views performed were: bilateral craniocaudal with tomosynthesis and bilateral mediolateral oblique with tomosynthesis. FILMS COMPARED: The present examination has been compared to prior imaging studies performed at [facility] on 05/06/2016, 05/21/2017, 05/24/2018 and 05/25/2019. This study has been interpreted with the assistance of computer-aided detection. MAMMOGRAM FINDINGS: There are scattered fibroglandular densities. There are benign appearing calcifications seen in both breasts. Deformity and scarring left breast is stable. There are no suspicious masses, suspicious calcifications, or new areas of architectural distortion. IMPRESSION: THERE IS NO MAMMOGRAPHIC EVIDENCE OF MALIGNANCY. A ROUTINE FOLLOW-UP MAMMOGRAM IN 1 YEAR IS RECOMMENDED. THE RESULTS OF THIS EXAM WERE SENT TO THE PATIENT. ACR BI-RADS Category 2 - Benign finding MAMMOGRAPHY NOTE: 1. A negative mammogram report should not delay a biopsy if a dominant of clinically suspicious mass is present. 2. Approximately 10% to 15% of breast cancers are not detected by mammography. 3. Adenosis and dense breasts may obscure an underlying neoplasm. Reported by: JUAN JOSÉ MUÑOZ MD Electonically Signed: [id number]
== END 2020-05-28 13:44 | disposition home or self-care (01) ==
LOC: BICMAMMO 13:43
PROVIDERS: ATTEND Internal Medicine
DX: Z12.31 Encounter for screening mammogram for malignant neoplasm of breast (principal)
CPT/HCPCS: 77063; 77067

== ENCOUNTER 2020-11-27 13:12 | Outpatient (CLI) | payer MEDICARE | END 2020-11-27 13:13 | disposition home or self-care (01) | LOC: DTY/OP 13:12 | PROVIDERS: ATTEND Student in an Organized Health Care Education/Training Program | DX: E11.40 Type 2 diabetes mellitus with diabetic neuropathy, unspecified (principal) | CPT/HCPCS: 97802 ==

== ENCOUNTER 2021-03-05 10:17 | Observation (INO) | payer MEDICARE ==
[2021-03-05 11:36] LABS: Bacteria/HPF None Seen HPF (None Seen); Bilirubin Negative (Negative); Blood, Urine Negative (Negative); Clarity Clear (Clear); Glucose, Urine (Dipstick) Greater than 1000 mg/dL (Negative); Ketone, Urine 10 mg/dL (Negative); Leukocyte 250 Leu/uL (Negative); Nitrite Negative (Negative); Protein, Urine (Dipstick) Negative (Neg-Trace); RBC/HPF 0-3 HPF (0-3); Specific Gravity, Urine 1.032 (1.002-1.036); Squamous Epithelial 0-3 HPF (0-3); Urobilinogen Normal mg/dL (Less than 2); pH, Urine 5.5 (5.0-9.0)
[2021-03-05 11:48] LABS: Amphetamine Not Detected (NotDetected); Barbiturates Screen Detected (NotDetected); Benzodiazepine Screen Not Detected (NotDetected); Cocaine Metabolite Screen Not Detected (NotDetected); Medtox Control Line Valid? VALID (VALID); Medtox Reader # READER 4; Methadone Not Detected (NotDetected); Methamphetamine Not Detected (NotDetected); Opiate Screen Not Detected (NotDetected); Oxycodone Screen Not Detected (NotDetected); Phencyclidine (PCP) Not Detected (NotDetected); THC/Cannabinoid Screen Not Detected (NotDetected); Tricyclic Screen Not Detected (NotDetected)
[2021-03-05 11:58] LABS: Actual Bicarbonate (HCO3v) 21 mEq/L (22-28); Analyzer IN Cardio ER; Base Excess -2.2 mEq/L (-2.0 to +3.0); Calcium, Ionized (venous) 1.07 mmol/L (1.16-1.32); Chloride (VBG) 101 mmol/L (98-106); Potassium (VBG) 4.01 mmol/L (3.70-5.30); Sodium 136.4 mmol/L (133-146); pH (venous) 7.43 (7.32-7.43)
[2021-03-05 12:00] LABS: #Eosinphils 0.1 thou/uL (0.0-0.7); #Lymphocytes 3.9 thou/uL (1.20-3.40); #Monocytes 0.8 thou/uL (0.11-0.59); #Neutrophils 5.1 thou/uL (1.40-6.50); %Basophils 0.2 % (0.0-1.0); %Eosinophils 0.9 % (0.0-10.0); %Lymphocytes 39.1 % (21.0-51.0); %Monocytes 7.9 % (0.0-10.0); %Neutrophils 51.8 % (42.0-75.0); Hemoglobin 12.1 g/dL (12.0-16.0); Mean Corpuscular HGB CONC 31.9 g/dL (32.0-36.0); Mean Corpuscular Hemoglobin 29.7 pg (27.0-31.0); Mean Corpuscular Volume 93.3 fL (78.0-98.0); Mean Platelet Volume 7.8 fL (7.4-10.4); Platelet Count 325 thou/uL (130-400); RBC Distribution Width 12.2 % (11.5-14.5); Red Blood Cell (RBC) Count 4.08 mill/uL (4.20-5.40); White Blood Cell (WBC) Count 9.9 thou/uL (4.8-10.8)
[2021-03-05 12:12] LABS: Acetaminophen Less than 6.0 mcg/mL (10.0-30.0); Alcohol Less than 10 mg/dL (Less than 10); Salicylate Less than 8.0 mg/dL (15.0-30.0)
[2021-03-05 12:18] LABS: ALT (SGPT) 65 U/L (8-55); AST (SGOT) 42 U/L (5-34); Albumin 3.9 g/dL (3.4-4.8); Alkaline Phosphatase 62 U/L (40-110); Anion Gap 21 mmol/L (10-20); BUN (Urea Nitrogen) 22 mg/dL (9.8-20.1); Bilirubin, Total Less than 0.2 mg/dL (0.2-1.2); Calc. Creatinine Clearance 0 mL/min (70-130); Calcium 9.6 mg/dL (7.8-10.44); Carbon Dioxide 19 mmol/L (23-31); Chloride 100 mmol/L (98-107); Globulin 3.3 g/dL (2.4-3.5); Glucose 438 mg/dL (80-115); Potassium 4.1 mmol/L (3.5-5.1); Protein, Total 7.2 g/dL (5.8-8.1); Sodium 136 mmol/L (136-145)
[2021-03-05] MEDS ORDERED: Cefepime 2 GM VIAL ONE (12:57)
[2021-03-05] MEDS ORDERED: Acetaminophen 325 MG TAB PO PRN (14:06)
[2021-03-05] MEDS ORDERED: Ondansetron ODT 4 MG TAB PO PRN (14:06)
[2021-03-05] MEDS ORDERED: Ondansetron PF 4 MG/2 ML Vial IVP PRN (14:06)
[2021-03-05] MEDS ORDERED: hydrOXYzine 25 MG TAB PO PRN (14:27)
[2021-03-05] MEDS ORDERED: Dextrose 5% in Water 1,000 ML IV PRN (14:30)
[2021-03-05] MEDS ORDERED: Dextrose 50% Abboject 50 ML SYRINGE SLOW IVP PRN (14:30)
[2021-03-05] MEDS ORDERED: HumaLOG 300 UNITS/3 ML VIAL SC PRN (14:30)
[2021-03-05 14:53] LABS: Hemoglobin A1c 8.2 % (4.0-6.0)
[2021-03-05 14:55] LABS: Lactic Acid 4.2 mmol/L (0.5-2.2)
[2021-03-05] MEDS ORDERED: Nicotine 21 MG PATCH TD SCH (15:00)
[2021-03-05 15:19] VITALS: BMI 33.5
[2021-03-05] MEDS: Lactated Ringer's 1,000 ML IV SCH (15:45)
[2021-03-05 17:29] LABS: Lactic Acid 4.6 mmol/L (0.5-2.2)
[2021-03-05] MEDS: HumaLOG 300 UNITS/3 ML VIAL SC PRN (17:57)
[2021-03-05 20:28] LABS: Lactic Acid 2.7 mmol/L (0.5-2.2)
[2021-03-05] MEDS: Primidone 50 MG TAB PO SCH (20:55)
[2021-03-05] MEDS ORDERED: Lisinopril 20 MG TAB PO SCH (21:00)
[2021-03-05] MEDS ORDERED: Atorvastatin Calcium 40 MG TAB PO SCH (21:00)
[2021-03-05] MEDS ORDERED: Levothyroxine Sodium 88 MCG TAB PO SCH (21:00)
[2021-03-05] MEDS ORDERED: Multivitamin W/ Minerals 1 TAB PO SCH (21:00)
[2021-03-05] MEDS ORDERED: Lantus 1000 UNITS/10 ML VIAL SC SCH (21:00)
[2021-03-05] MEDS ORDERED: Aspirin Chewable 81 MG TAB PO SCH (21:00)
[2021-03-06] MEDS: Lactated Ringer's 1,000 ML IV SCH (03:40)
[2021-03-06 05:35] LABS: Lactic Acid 1.5 mmol/L (0.5-2.2)
[2021-03-06 05:48] LABS: ALT (SGPT) 70 U/L (8-55); AST (SGOT) 57 U/L (5-34); Albumin 3.8 g/dL (3.4-4.8); Alkaline Phosphatase 70 U/L (40-110); Anion Gap 16 mmol/L (10-20); BUN (Urea Nitrogen) 13 mg/dL (9.8-20.1); Bilirubin, Total 0.2 mg/dL (0.2-1.2); Calc. Creatinine Clearance 101 mL/min (70-130); Calcium 9.1 mg/dL (7.8-10.44); Carbon Dioxide 20 mmol/L (23-31); Chloride 108 mmol/L (98-107); Globulin 3.2 g/dL (2.4-3.5); Glucose 177 mg/dL (80-115); Potassium 3.7 mmol/L (3.5-5.1); Sodium 140 mmol/L (136-145)
[2021-03-06] MEDS: Primidone 50 MG TAB PO SCH (07:24)
[2021-03-06] MEDS ORDERED: Clobetasol 0.05% Cream 15 gm Tube TOP PRN (08:00)
[2021-03-06 11:46] VITALS: BP 129/60; TEMP 98.6
[2021-03-06] MEDS: HumaLOG 300 UNITS/3 ML VIAL SC PRN (11:48)
== END 2021-03-06 14:15 | disposition home or self-care (01) ==
LOC: ERS 10:17 → 2NO 13:02
PROVIDERS: ADMIT Student in an Organized Health Care Education/Training Program; ATTEND Student in an Organized Health Care Education/Training Program
DX: R25.1 Tremor, unspecified (principal); E11.620 Type 2 diabetes mellitus with diabetic dermatitis; E03.9 Hypothyroidism, unspecified; E87.2 Acidosis; R13.10 Dysphagia, unspecified; F17.290 Nicotine dependence, other tobacco product, uncomplicated; Z79.4 Long term (current) use of insulin; Z79.82 Long term (current) use of aspirin; Z79.899 Other long term (current) drug therapy; Z88.0 Allergy status to penicillin; Z88.2 Allergy status to sulfonamides; Z88.5 Allergy status to narcotic agent; Z88.8 Allergy status to other drugs, medicaments and biological substances
CPT/HCPCS: 36415; 36416; 80053; 80164; 80306; 80307; 81003; 81015; 82010; 82805; 83036; 83605; 84443; 85025; 87040; 87086; 93005; 96365; G0378; J0692; J1815

== ENCOUNTER 2021-05-29 14:39 | Outpatient (CLI) | payer MEDICARE | END 2021-05-29 14:40 | disposition home or self-care (01) | LOC: BICMAMMO 14:39 | PROVIDERS: ATTEND Student in an Organized Health Care Education/Training Program | DX: Z12.31 Encounter for screening mammogram for malignant neoplasm of breast (principal) | CPT/HCPCS: 77063; 77067 ==

== ENCOUNTER 2021-10-06 13:44 | Emergency (ER) | payer MEDICARE ==
[2021-10-06 14:58] LABS: #Eosinphils 0.1 thou/uL (0.0-0.7); #Lymphocytes 1.7 thou/uL (1.20-3.40); #Monocytes 0.6 thou/uL (0.11-0.59); #Neutrophils 4.7 thou/uL (1.40-6.50); %Basophils 0.3 % (0.0-1.0); %Eosinophils 1.1 % (0.0-10.0); %Lymphocytes 24.4 % (21.0-51.0); %Monocytes 7.9 % (0.0-10.0); %Neutrophils 66.4 % (42.0-75.0); Hemoglobin 11.6 g/dL (12.0-16.0); Mean Corpuscular HGB CONC 32.6 g/dL (32.0-36.0); Mean Corpuscular Hemoglobin 29.1 pg (27.0-31.0); Mean Corpuscular Volume 89.1 fL (78.0-98.0); Platelet Count 261 thou/uL (130-400); Red Blood Cell (RBC) Count 3.98 mill/uL (4.20-5.40); White Blood Cell (WBC) Count 7.1 thou/uL (4.8-10.8)
[2021-10-06 14:59] LABS: Bilirubin Negative (Negative); Blood, Urine Negative (Negative); Clarity Clear (Clear); Glucose, Urine (Dipstick) Greater than 1000 mg/dL (Negative); Ketone, Urine Negative (Negative); Leukocyte Negative Leu/uL (Negative); Nitrite Negative (Negative); Protein, Urine (Dipstick) Negative (Neg-Trace); Specific Gravity, Urine 1.036 (1.002-1.036); Urobilinogen Normal mg/dL (Less than 2); pH, Urine 5.5 (5.0-9.0)
[2021-10-06 15:19] LABS: ALT (SGPT) 26 U/L (8-55); AST (SGOT) 33 U/L (5-34); Albumin 3.8 g/dL (3.4-4.8); Alkaline Phosphatase 61 U/L (40-110); Anion Gap 13 mmol/L (10-20); BUN (Urea Nitrogen) 9 mg/dL (9.8-20.1); Bilirubin, Total 0.4 mg/dL (0.2-1.2); Calc. Creatinine Clearance 0 mL/min (70-130); Calcium 9.8 mg/dL (7.8-10.44); Carbon Dioxide 23 mmol/L (23-31); Chloride 102 mmol/L (98-107); Globulin 3.1 g/dL (2.4-3.5); Glucose 487 mg/dL (80-115); Potassium 3.5 mmol/L (3.5-5.1); Protein, Total 6.9 g/dL (5.8-8.1); Sodium 134 mmol/L (136-145)
== END 2021-10-06 18:45 | disposition home or self-care (01) ==
LOC: ERS 13:44
DX: E11.65 Type 2 diabetes mellitus with hyperglycemia (principal); E03.9 Hypothyroidism, unspecified; E78.5 Hyperlipidemia, unspecified; F17.210 Nicotine dependence, cigarettes, uncomplicated; Z79.4 Long term (current) use of insulin
CPT/HCPCS: 36415; 36416; 71045; 80053; 81003; 84484; 85025; 93005

== ENCOUNTER 2022-01-24 14:31 | Outpatient (CLI) | payer MEDICARE ==
[2022-01-25 02:04] LABS: SARS-CoV-2 PCR by NAA Not Detected (NotDetected)
== END 2022-01-24 14:32 | disposition home or self-care (01) ==
LOC: LABBT 14:31
PROVIDERS: ATTEND Student in an Organized Health Care Education/Training Program
DX: Z20.822 Contact with and (suspected) exposure to COVID-19 (principal)
CPT/HCPCS: U0003; U0005

== ENCOUNTER 2022-01-28 12:41 | Outpatient (CLI) | payer MEDICARE | END 2022-01-28 12:42 | disposition home or self-care (01) | LOC: RAD 12:41 | PROVIDERS: ATTEND Student in an Organized Health Care Education/Training Program | DX: R13.10 Dysphagia, unspecified (principal); K44.9 Diaphragmatic hernia without obstruction or gangrene | CPT/HCPCS: 74220 ==

== ENCOUNTER 2022-05-30 13:53 | Outpatient (CLI) | payer MEDICARE | END 2022-05-30 13:54 | disposition home or self-care (01) | LOC: BICMAMMO 13:53 | PROVIDERS: ATTEND Student in an Organized Health Care Education/Training Program | DX: Z12.31 Encounter for screening mammogram for malignant neoplasm of breast (principal); M81.8 Other osteoporosis without current pathological fracture; M85.851 Other specified disorders of bone density and structure, right thigh | CPT/HCPCS: 77063; 77067; 77080 ==

== ENCOUNTER 2022-11-14 02:27 | Emergency (ER) | payer MEDICARE ==
[2022-11-14] MEDS ORDERED: Mag-Al 1200 mg/1200 mg/30 ML UDCUP ONE (03:13)
[2022-11-14] MEDS ORDERED: Ondansetron ODT 4 MG TAB ONE (03:13)
[2022-11-14 04:24] LABS: #Eosinphils 0.1 thou/uL (0.0-0.7); #Lymphocytes 2.3 thou/uL (1.20-3.40); #Neutrophils 10.6 thou/uL (1.40-6.50); %Eosinophils 0.7 % (0.0-10.0); %Lymphocytes 16.2 % (21.0-51.0); %Monocytes 6.8 % (0.0-10.0); %Neutrophils 76.2 % (42.0-75.0); Mean Corpuscular HGB CONC 32.6 g/dL (32.0-36.0); Mean Corpuscular Hemoglobin 28.8 pg (27.0-31.0); Mean Corpuscular Volume 88.1 fl (78.0-98.0); Mean Platelet Volume 8.7 fL (7.4-10.4); Platelet Count 295 10x3/uL (130-400); RBC Distribution Width 13.5 % (11.5-14.5); Red Blood Cell (RBC) Count 4.18 mill/uL (4.20-5.40); White Blood Cell (WBC) Count 13.9 10x3/uL (4.8-10.8)
[2022-11-14 04:38] LABS: ALT (SGPT) 46 U/L (8-55); AST (SGOT) 72 U/L (5-34); Albumin 4.5 g/dL (3.4-4.8); Alkaline Phosphatase 127 U/L (40-110); Anion Gap 22 mmol/L (10-20); BUN (Urea Nitrogen) 11 mg/dL (9.8-20.1); Bilirubin, Total 0.3 mg/dL (0.2-1.2); Calc. Creatinine Clearance 0 mL/min (70-130); Calcium 9.4 mg/dL (7.8-10.44); Carbon Dioxide 18 mmol/L (23-31); Chloride 102 mmol/L (98-107); Estimated GFR 60; Globulin 3.5 g/dL (2.4-3.5); Glucose 332 mg/dL (80-115); Sodium 138 mmol/L (136-145)
[2022-11-14 07:59] LABS: Anion Gap 17 mmol/L (10-20); BUN (Urea Nitrogen) 12 mg/dL (9.8-20.1); Calc. Creatinine Clearance 0 mL/min (70-130); Calcium 9.1 mg/dL (7.8-10.44); Carbon Dioxide 27 mmol/L (23-31); Chloride 98 mmol/L (98-107); Estimated GFR 65; Glucose 295 mg/dL (80-115); Sodium 138 mmol/L (136-145)
== END 2022-11-14 08:31 | disposition home or self-care (01) ==
LOC: ERS 02:27
DX: J02.9 Acute pharyngitis, unspecified (principal); E11.9 Type 2 diabetes mellitus without complications; E03.9 Hypothyroidism, unspecified; E78.00 Pure hypercholesterolemia, unspecified; I10 Essential (primary) hypertension; Z87.891 Personal history of nicotine dependence; Z79.84 Long term (current) use of oral hypoglycemic drugs
CPT/HCPCS: 36415; 36416; 80053; 82010; 85025; 96360; Q0162

== ENCOUNTER 2023-03-23 18:30 | Outpatient (CLI) | payer MEDICARE | END 2023-03-23 18:31 | disposition home or self-care (01) | LOC: SLEEPLAB 18:30 | PROVIDERS: ATTEND Internal Medicine | DX: G47.33 Obstructive sleep apnea (adult) (pediatric) (principal) | CPT/HCPCS: 95800 ==

== ENCOUNTER 2023-04-06 11:15 | Emergency (ER) | payer MEDICARE ==
[~2023-04-06 11:15] MED LIST: Iopamidol-370 76% 500 ML MDV (1 ML CHARGE) ONE
[2023-04-06] MEDS ORDERED: Acetaminophen 325 MG TAB ONE (12:15)
[2023-04-06 12:35] LABS: #Eosinphils 0.1 thou/uL (0.0-0.7); #Monocytes 1.3 thou/uL (0.11-0.59); #Neutrophils 8.6 thou/uL (1.40-6.50); %Basophils 0.4 % (0.0-1.0); %Eosinophils 0.8 % (0.0-10.0); %Lymphocytes 8.8 % (21.0-51.0); %Monocytes 11.6 % (0.0-10.0); %Neutrophils 77.4 % (42.0-75.0); Hematocrit 33.9 % (36.0-47.0); Hemoglobin 11.2 g/dL (12.0-16.0); Mean Corpuscular Hemoglobin 27.9 pg (27.0-31.0); Mean Corpuscular Volume 84.3 fl (78.0-98.0); Mean Platelet Volume 10.4 fL (7.4-10.4); Platelet Count 312 10x3/uL (130-400); RBC Distribution Width 13.6 % (11.5-14.5); Red Blood Cell (RBC) Count 4.02 mill/uL (4.20-5.40); White Blood Cell (WBC) Count 11.1 10x3/uL (4.8-10.8)
[2023-04-06 13:00] LABS: ALT (SGPT) 32 U/L (8-55); AST (SGOT) 43 U/L (5-34); Alkaline Phosphatase 45 U/L (40-110); Anion Gap 15 mmol/L (10-20); BUN (Urea Nitrogen) 25 mg/dL (9.8-20.1); Bilirubin, Total 0.4 mg/dL (0.2-1.2); CK (CPK) 81 U/L (29-168); Calc. Creatinine Clearance 0 mL/min (70-130); Calcium 9.6 mg/dL (7.8-10.44); Carbon Dioxide 21 mmol/L (23-31); Chloride 99 mmol/L (98-107); Estimated GFR 60; Globulin 3.6 g/dL (2.4-3.5); Glucose 151 mg/dL (80-115); Lipase 8 U/L (8-78); Potassium 3.5 mmol/L (3.5-5.1); Protein, Total 7.6 g/dL (5.8-8.1); Sodium 131 mmol/L (136-145)
[2023-04-06 13:33] LABS: SARS-CoV-2 NAA Rapid Test DETECTED (NotDetected)
== END 2023-04-06 14:15 | disposition home or self-care (01) ==
LOC: ERS 11:15
DX: U07.1 COVID-19 (principal); R06.00 Dyspnea, unspecified; I10 Essential (primary) hypertension; E78.00 Pure hypercholesterolemia, unspecified; E11.9 Type 2 diabetes mellitus without complications; E03.9 Hypothyroidism, unspecified
CPT/HCPCS: 0240U; 71275; 80053; 82550; 82962; 83605; 83690; 83880; 84484; 85025; 87040; 93005; 36415; 36416; 96360; Q9967